=== PATIENT | female | born 1985 | race Caucasian/White ===

== ENCOUNTER 2017-12-06 12:15 | Inpatient (IN) | payer BC ==
[2017-12-06 13:27] LABS: ABS Basophils 0.1 10^3/ul (0-0.2); ABS Eosinophils 0.2 10^3/ul (0-0.6); ABS Lymphocytes 2.3 10^3/ul (1.0-4.8); ABS Monocytes 0.9 10^3/ul (0-0.8); ABS Neutrophils 7.6 10^3/ul (1.5-7.7); ABS Nucleated RBC 0 10^3/ul; Eosinophil % 1.4 % (0-6); Hematocrit 40 % (35-47); Hemoglobin 13.8 g/dl (12.0-16.0); Lymphocyte % 20.9 % (25-47); Mean Corpuscular HGB Conc 35 g/dl (31-36); Mean Corpuscular Hemoglobin 30 pg (27-31); Mean Corpuscular Volume 88 fL (80-97); Mean Platelet Volume 8 um3 (7.4-10.4); Nucleated Red Blood Cells % 0; Platelet Count 224 10^3/ul (150-450); Red Blood Count 4.54 10^6/ul (4.0-5.4); Red Cell Distribution Width 13 % (10.5-15); White Blood Count 11.1 10^3/ul (3.5-10.8)
[2017-12-06] MEDS ORDERED: Atropine 1MG/ML INJ* 1 ML VIAL ONE (20:22)
[2017-12-06] MEDS ORDERED: Morphine PF AMP (0.5MG/ML)* 5 MG/10 ML AMP ONE (20:23)
[2017-12-06] MEDS ORDERED: ceFOXitin 2 GM IVPREMIX* 2 GM/50 ML BAG ONE (20:38)
[2017-12-06] MEDS ORDERED: Naloxone* 0.4 MG/ML 1 ML VIAL IV PRN (21:13)
[2017-12-06] MEDS ORDERED: Nalbuphine* 20 MG/ML 1 ML VIAL IV PRN ×2 (21:13)
[2017-12-06] MEDS ORDERED: oxyCODONE/Acetamin 5/325 MG* TAB PO PRN (21:13)
[2017-12-06] MEDS ORDERED: Ondansetron INJ* 2 MG/ML VIAL IV PRN (21:13)
[2017-12-06] MEDS ORDERED: DiMENhydriNATE IV* 50 MG/ML VIAL IV PUSH PRN (21:13)
[2017-12-06] MEDS ORDERED: OXYTOCIN* 10 UNITS/ML 1 ML VIAL ONE (21:33)
[2017-12-06] MEDS ORDERED: EPHEDrine (Pressors)* 50 MG/ML VIAL ONE (21:33)
[2017-12-06] MEDS ORDERED: Witch Hazel PAD* JAR TOPICAL PRN (21:45)
[2017-12-06] MEDS ORDERED: RHO D Immune Globulin (HUMAN)* 300 MCG = 1,500 I.U. INJ IM ONE (21:45)
[2017-12-06] MEDS ORDERED: Dibucaine 1% 28.35 GM TUBE PR PRN (21:45)
[2017-12-06] MEDS ORDERED: Glycerin ADULT SUPP PR PRN (21:45)
[2017-12-06] MEDS ORDERED: Oxytocin in LR* 20 UNITS/1,000 ML BAG IVPB SCH (22:00)
[2017-12-06] MEDS ORDERED: Ondansetron INJ* 2 MG/ML VIAL ONE (22:08)
[2017-12-07] MEDS ORDERED: Ibuprofen TAB* 600 MG ONE (00:16)
[2017-12-07] MEDS: Ibuprofen TAB* 600 MG PO SCH ×2 (00:26→08:16)
[2017-12-07] MEDS ORDERED: Acetaminophen TAB* 325 MG ONE ×2 (01:55→09:26)
[2017-12-07] MEDS ORDERED: DiMENhydriNATE IV* 50 MG/ML VIAL ONE (01:57)
[2017-12-07] MEDS ORDERED: Ketorolac INJ* 30 MG/ML 1 ML VIAL IV ONE (02:00)
[2017-12-07] MEDS: Ketorolac INJ* 30 MG/ML 1 ML VIAL ONE ×2 (02:27→12:58)
[2017-12-07 06:10] LABS: ABS Basophils 0.1 10^3/ul (0-0.2); ABS Eosinophils 0 10^3/ul (0-0.6); ABS Lymphocytes 2.1 10^3/ul (1.0-4.8); ABS Monocytes 1.3 10^3/ul (0-0.8); ABS Neutrophils 13.4 10^3/ul (1.5-7.7); ABS Nucleated RBC 0 10^3/ul; Eosinophil % 0.2 % (0-6); Hematocrit 37 % (35-47); Hemoglobin 12.6 g/dl (12.0-16.0); Lymphocyte % 12.4 % (25-47); Mean Corpuscular HGB Conc 34 g/dl (31-36); Mean Corpuscular Hemoglobin 30 pg (27-31); Mean Corpuscular Volume 89 fL (80-97); Mean Platelet Volume 8 um3 (7.4-10.4); Nucleated Red Blood Cells % 0.1; Platelet Count 207 10^3/ul (150-450); Red Blood Count 4.15 10^6/ul (4.0-5.4); Red Cell Distribution Width 13 % (10.5-15); White Blood Count 16.9 10^3/ul (3.5-10.8)
[2017-12-07] MEDS: Acetaminophen TAB* 325 MG PO PRN ×3 (09:27→22:15)
[2017-12-07] MEDS: Docusate CAP* 100 MG PO SCH ×3 (09:27→19:51)
[2017-12-07] MEDS: Simethicone TAB* 80 MG TAB.CHEW PO SCH ×3 (09:27→19:51)
[2017-12-07] MEDS ORDERED: Ketorolac INJ* 30 MG/ML 1 ML VIAL IV PRN (09:33)
[2017-12-07] MEDS ORDERED: Acetaminophen TAB* 325 MG PO PRN (09:33)
[2017-12-07] MEDS: Ferrous Gluconate TAB* 324 MG TAB PO SCH (15:05)
--- NOTE | 2017-12-07 17:05 | OP ---
DATE OF OPERATION: 12/06/17 - ROOM #102 DATE OF : 85 SURGEON: Mai Herbert MD SOFTWARE CONSULTANT: Dr. Emiliano Goodwin. PRE-OP DIAGNOSES: Intrauterine at 39 and 4/7th weeks, desires repeat section, spontaneous rupture of membranes. POST-OP DIAGNOSES: Intrauterine at 39 and 4/7th weeks, desires repeat section, spontaneous rupture of membranes, delivered. OPERATIVE PROCEDURE: Repeat low transverse section. ESTIMATED BLOOD LOSS: 500 cc. URINE OUTPUT: 200 cc of clear yellow urine. FLUIDS: 1800 cc of crystalloid. FINDINGS: Revealed a vertex male infant, Apgars 9 at 1 minute and 9 at 5 minutes, weight was 7 pounds 5 ounces. Nuchal cord x1, 3-vessel cord. Placenta manually extracted and intact. Normal-appearing tubes and ovaries bilaterally. Normal uterine cavity without retained membranes or placental tissue. No evidence of adhesions. COMPLICATIONS: None apparent. DISPOSITION: Stable to recovery room. DESCRIPTION OF PROCEDURE: The patient after undergoing spinal anesthesia had a prep and drape of her abdomen. [place] protocol was used to identify the correct patient, procedure and position. After testing anesthesia to appropriate level with Allis, an incision was made through prior incision with scalpel. This was carried down to the fascia. The fascia was scored in the midline with scalpel and then extended laterally and superiorly using Cash scissors. The fascia was superiorly and inferiorly with blunt and sharp dissection. The peritoneum was then entered bluntly. The peritoneal incision was extended bluntly. Bladder blade was inserted. Lower uterine segment was identified and Allis was used to tent up on the lower uterine segment. An incision was made with the scalpel and this was carried down through to the membranes. Light meconium was noted. The incision was extended bluntly. The head was delivered direct OA. Anterior and posterior shoulder delivered after nuchal cord was reduced. Cord clamp was done after 60 seconds of cord pulse. The baby was vigorous and crying. Cord was then clamped and cut and the infant was handed off to waiting educational psychology professor. Appropriate cord blood was obtained. Placenta was then manually extracted, noted to be intact and had three-vessel cord. The uterus was exteriorized, wrapped in warm moist laparotomy sponge. The uterine cavity was explored and noted to be free of any membranes or placental tissue. The uterine incision was reapproximated using 0 Vicryl x1 in a running locked suture and then running imbricated for complete hemostasis of hysterotomy site. Tubes and ovaries were noted to have a normal appearance. The uterus was returned intra-abdominally. Colic gutters were lavaged. Hemostasis was assured at the hysterotomy site. The peritoneum was then grasped with Dinora and the peritoneum was then reapproximated using 2-0 Vicryl in a running fashion. Subfascial area was lavaged. Hemostasis assured and the fascia itself was reapproximated using 0 Vicryl x2 in a running fashion. Subcu was lavaged. Hemostasis assured with Bovie coagulation. A subcuticular fat stitch was placed for reapproximation of Camper's fascia using interrupted 3-0 Vicryl. The skin was then reapproximated using 4-0 Monocryl in a subcuticular fashion. Mastisol and Steri-Strips were applied. All sponge, needle, instrument, and blade counts were correct throughout the case. The patient went to recovery room in stable condition. [id number]/[facility] #: [id number] CHRISS
[2017-12-07] MEDS: Ibuprofen TAB* 600 MG PO PRN (19:51)
[2017-12-08] MEDS: Ibuprofen TAB* 600 MG PO PRN ×4 (02:20→22:31)
[2017-12-08] MEDS: Acetaminophen TAB* 325 MG PO PRN ×5 (06:37→21:11)
[2017-12-08] MEDS: Docusate CAP* 100 MG PO SCH ×3 (09:11→21:11)
[2017-12-08] MEDS: Simethicone TAB* 80 MG TAB.CHEW PO SCH ×3 (12:17→21:11)
[2017-12-08] MEDS: Ferrous Gluconate TAB* 324 MG TAB PO SCH (19:16)
[2017-12-09] MEDS ORDERED: Ondansetron TAB* 4 MG PO PRN (00:10)
[2017-12-09] MEDS ORDERED: MEPERIDINE 50 MG PO PRN (00:10)
[2017-12-09] MEDS: Acetaminophen TAB* 325 MG PO PRN ×2 (00:47→06:32)
[2017-12-09] MEDS ORDERED: MEPERIDINE 50 MG PO ONE (01:00)
[2017-12-09] MEDS: Ibuprofen TAB* 600 MG PO PRN ×2 (04:22→10:53)
[2017-12-09 07:35] VITALS: BP 129/87
[2017-12-09] MEDS: Docusate CAP* 100 MG PO SCH (08:27)
[2017-12-09] MEDS: Simethicone TAB* 80 MG TAB.CHEW PO SCH (08:27)
== END 2017-12-09 11:53 | disposition home or self-care (01) | DRG 540 ==
LOC: MCHOBOUT 12:15 → MCHOB 12:50
PROVIDERS: ADMIT Obstetrics & Gynecology; ATTEND Obstetrics & Gynecology
PROC: 4A1HXCZ Monitoring of Products of Conception, Cardiac Rate, External Approach (ICD-10-PCS; 2017-12-06)
PROC: 10D00Z1 Extraction of Products of Conception, Low, Open Approach (ICD-10-PCS; principal; 2017-12-06 20:35)
DX: O69.1XX0 Labor and delivery complicated by cord around neck, with compression, not applicable or unspecified (principal); E66.9 Obesity, unspecified; O99.214 Obesity complicating childbirth; O34.211 Maternal care for low transverse scar from previous cesarean delivery; O99.52 Diseases of the respiratory system complicating childbirth; J45.909 Unspecified asthma, uncomplicated; O26.893 Other specified pregnancy related conditions, third trimester; O77.0 Labor and delivery complicated by meconium in amniotic fluid; Z3A.39 39 weeks gestation of pregnancy; Z37.0 Single live birth; Z67.41 Type O blood, Rh negative; Z68.36 Body mass index [BMI] 36.0-36.9, adult; Z88.5 Allergy status to narcotic agent
CPT/HCPCS: 36415; 84550; 85025; 85461; 86850; 86900; 86901; A9270-GY; J0461; J0694; J1240; J1885; J2405; J2590; J2790

== ENCOUNTER 2019-12-15 18:59 | Emergency (ER) | payer BC ==
[2019-12-15 20:36] LABS: ABS Lymphocytes 0.5 10^3/ul (1.0-4.8); ABS Monocytes 0.4 10^3/ul (0-0.8); ABS Neutrophils 7.2 10^3/ul (1.5-7.7); Hematocrit 41 % (35-47); Hemoglobin 13.7 g/dL (12.0-16.0); Lymphocyte % 6.5 %; Mean Corpuscular HGB Conc 34 g/dL (31-36); Mean Corpuscular Hemoglobin 29 pg (27-31); Mean Corpuscular Volume 86 fL (80-97); Mean Platelet Volume 7.5 fL (7.4-10.4); Platelet Count 299 10^3/uL (150-450); Red Blood Count 4.72 10^6 /uL (3.70-4.87); Red Cell Distribution Width 12 % (10-15); White Blood Count 8.1 10^3/uL (3.5-10.8)
[2019-12-15 20:51] LABS: Albumin 3.9 g/dL (3.2-5.2); Albumin/Globulin Ratio 1.3 (1-3); BUN/Creatinine Ratio 16.4 (8-20); C Reactive Protein 1.76 mg/L (<8.01); Calcium 8.7 mg/dL (8.6-10.3); EGFR African American 135.9 (>60); EGFR Non-African American 112.3 (>60); Potassium 3.6 mmol/L (3.5-5.0); Total Bilirubin 0.2 mg/dL (0.2-1.0); Total Protein 6.9 g/dL (6.4-8.9)
[2019-12-15 20:53] LABS: Troponin I 0.01 ng/mL (<0.03)
--- NOTE | 2019-12-15 21:29 | ED ---
Respiratory - HPI Summary HPI Summary: 34-year-old female presents with shortness of breath today. States a month ago had an upper respiratory infection that seemed to get better and then had a GI bug that turned into a sinus infection and then became an upper respiratory infection. She has been following up with her patient care specialist. Product Development Worker currently placed her on a steroid and just started on moxifloxacin today. She was on course of clarithromycin. She states her cough was productive and now is dry. She admits to occasional shortness of breath. States that SOB has resolved. She was also anxious at the time. She had some chest pain at that time as well but none currently. symptoms did not change with positional changes. She denies any family history of blood clots. No recent travel. Nonsmoker. No history of high blood pressure ordiabetes. - History of Current Complaint Chief Complaint: EDUpperRespComplaint Stated Complaint: COUGH,SOB Time Seen by Provider: 12/15/19 19:43 Pain Intensity: 4 - Allergy/Home Medications Allergies/Adverse Reactions: Allergies Allergy/AdvReac Type Severity Reaction Status Date / Time oxycodone Allergy Severe Hives Verified 12/15/19 21:29 Home Medications: Home Medications Albuterol HFA INHALER* [Ventolin HFA Inhaler*] 1 puff IH Q4HR PRN 11/23/15 [ History Confirmed 12/15/19] Budesonide NASAL (NF) 1 puff NASAL DAILY 12/06/17 [History Confirmed 12/15/19] Hydrocodone/Acetaminophen [Hydrocodone-Acetamin 5-325 mg] 1 - 2 tab PO Q6H PRN # 20 tablet MDD 6 12/09/17 [Rx Confirmed 12/15/19] Budesonide/Formoterol Fumarate [Budesonide-Formoterol 160-4.5] 1 spray ALT NARE BID 12/15/19 [History Confirmed 12/15/19] Moxifloxacin HCl 400 mg PO DAILY 12/15/19 [History Confirmed 12/15/19] Sodium Chloride [Saline Nasal Mist] 126 ml NS Q6HR PRN 12/15/19 [History Confirmed 12/15/19] predniSONE 10 mg TAB [Deltasone 10 MG TAB*] 30 mg PO BID 12/15/19 [History Confirmed 12/15/19] PMH/Surg Hx/FS Hx/Imm Hx Endocrine/Hematology History: Denies: Hx Anticoagulant Therapy Respiratory History: Reports: Hx Asthma - Surgical History Surgery Procedure, Year, and Place: EYE SURGERY, Infectious Disease History: No Infectious Disease History: Denies: Traveled Outside the [place] in Last 30 Days - Family History Known Family History: Positive: None Negative: Blood Disorder - Social History Alcohol Use: Occasionally Substance Use Type: Reports: None Smoking Status (MU): Never Smoked Tobacco Review of Systems Negative: Fever Negative: Chest Pain Positive: Shortness Of Breath, Cough All Other Systems Reviewed And Are Negative: Yes Physical Exam Triage Information Reviewed: Yes Vital Signs On Initial Exam: Initial Vitals Temp Pulse Resp BP Pulse Ox 98.2 F 112 18 162/112 97 12/15/19 19:00 12/15/19 19:00 12/15/19 19:00 12/15/19 19:00 12/15/19 19:00 Vital Signs Reviewed: Yes Appearance: Positive: Well-Appearing Skin: Positive: Warm, Dry Head/Face: Positive: Normal Head/Face Inspection Eyes: Positive: Normal, EOMI, NICOLA, Conjunctiva Clear ENT: Positive: Normal ENT inspection, Pharynx normal, TMs normal Respiratory/Lung Sounds: Positive: Clear to Auscultation, Breath Sounds Present Cardiovascular: Positive: Normal, RRR Abdomen Description: Positive: Nontender, Soft Bowel Sounds: Positive: Present Musculoskeletal: Positive: Normal Neurological: Positive: Normal Psychiatric: Positive: Normal Procedures - Sedation Patient Received Moderate/Deep Sedation with Procedure: No Diagnostics - Vital Signs Vital Signs Temp Pulse Resp BP Pulse Ox 12/15/19 19:00 98.2 F 112 18 162/112 97 - Laboratory Lab Results: Lab Results 12/15/19 12/15/19 12/15/19 Range/Units 20:21 20:21 20:21 WBC 8.1 (3.5-10.8) 10^3/uL RBC 4.72 (3.70-4.87) 10^6 /uL Hgb 13.7 (12.0-16.0) g/dL Hct 41 (35-47) % MCV 86 (80-97) fL MCH 29 (27-31) pg MCHC 34 (31-36) g/dL RDW 12 (10-15) % Plt Count 299 (150-450) 10^3/uL MPV 7.5 (7.4-10.4) fL Neut % (Auto) 88.3 % Lymph % (Auto) 6.5 % Ray % (Auto) 5.1 % Eos % (Auto) 0.0 % Baso % (Auto) 0.1 % Absolute Neuts (auto) 7.2 (1.5-7.7) 10^3/ul Absolute Lymphs (auto) 0.5 L (1.0-4.8) 10^3/ul Absolute Monos (auto) 0.4 (0-0.8) 10^3/ul Absolute Eos (auto) 0.0 (0-0.6) 10^3/ul Absolute Basos (auto) 0.0 (0-0.2) 10^3/ul Absolute Nucleated RBC 0.0 10^3/ul Nucleated RBC % 0.0 D-Dimer, Quantitative < 200 (Less Than 230) ng/mL Sodium 139 (135-145) mmol/L Potassium 3.6 (3.5-5.0) mmol/L Chloride 104 (101-111) mmol/L Carbon Dioxide 26 (22-32) mmol/L Anion Gap 9 (2-11) mmol/L BUN 10 (6-24) mg/dL Creatinine 0.61 (0.51-0.95) mg/dL Est GFR ( Amer) 135.9 (>60) Est GFR (Non-Af Amer) 112.3 (>60) BUN/Creatinine Ratio 16.4 (8-20) Glucose 118 H (70-100) mg/dL Lactic Acid (0.5-2.0) mmol/L Calcium 8.7 (8.6-10.3) mg/dL Total Bilirubin 0.20 (0.2-1.0) mg/dL AST 19 (13-39) U/L ALT 31 (7-52) U/L Alkaline Phosphatase 88 (34-104) U/L Troponin I 0.01 (<0.03) ng/mL C-Reactive Protein 1.76 (<8.01) mg/L Total Protein 6.9 (6.4-8.9) g/dL Albumin 3.9 (3.2-5.2) g/dL Globulin 3.0 (2-4) g/dL Albumin/Globulin Ratio 1.3 (1-3) 12/15/19 Range/Units 20:21 WBC (3.5-10.8) 10^3/uL RBC (3.70-4.87) 10^6 /uL Hgb (12.0-16.0) g/dL Hct (35-47) % MCV (80-97) fL MCH (27-31) pg MCHC (31-36) g/dL RDW (10-15) % Plt Count (150-450) 10^3/uL MPV (7.4-10.4) fL Neut % (Auto) % Lymph % (Auto) % Ray % (Auto) % Eos % (Auto) % Baso % (Auto) % Absolute Neuts (auto) (1.5-7.7) 10^3/ul Absolute Lymphs (auto) (1.0-4.8) 10^3/ul Absolute Monos (auto) (0-0.8) 10^3/ul Absolute Eos (auto) (0-0.6) 10^3/ul Absolute Basos (auto) (0-0.2) 10^3/ul Absolute Nucleated RBC 10^3/ul Nucleated RBC % D-Dimer, Quantitative (Less Than 230) ng/mL Sodium (135-145) mmol/L Potassium (3.5-5.0) mmol/L Chloride (101-111) mmol/L Carbon Dioxide (22-32) mmol/L Anion Gap (2-11) mmol/L BUN (6-24) mg/dL Creatinine (0.51-0.95) mg/dL Est GFR ( Amer) (>60) Est GFR (Non-Af Amer) (>60) BUN/Creatinine Ratio (8-20) Glucose (70-100) mg/dL Lactic Acid 2.0 (0.5-2.0) mmol/L Calcium (8.6-10.3) mg/dL Total Bilirubin (0.2-1.0) mg/dL AST (13-39) U/L ALT (7-52) U/L Alkaline Phosphatase (34-104) U/L Troponin I (<0.03) ng/mL C-Reactive Protein (<8.01) mg/L Total Protein (6.4-8.9) g/dL Albumin (3.2-5.2) g/dL Globulin (2-4) g/dL Albumin/Globulin Ratio (1-3) Result Diagrams: 12/15/19 20:21 12/15/19 20:21 Lab Statement: Any lab studies that have been ordered have been reviewed, and results considered in the medical decision making process. - Radiology chest Radiology Interpretation Completed By: ED Physician Summary of Radiographic Findings: no active disease - EKG No standard instances Cardiac Rate: NL EKG Rhythm: Sinus Rhythm Summary of EKG Findings: sinus rhythm Disposition - Course Course Of Treatment: 34-year-old female presents with shortness of breath today. States a month ago had an upper respiratory infection that seemed to get better and then had a GI bug that turned into a sinus infection and then became an upper respiratory infection. She has been following up with her patient care specialist. Product Development Worker currently placed her on a steroid and just started on moxifloxacin today. She was on course of clarithromycin. She states her cough was productive and now is dry. She admits to occasional shortness of breath. States that SOB has resolved. She was also anxious at the time. She had some chest pain at that time as well but none currently. symptoms did not change with positional changes. She denies any family history of blood clots. No recent travel. Nonsmoker. No history of high blood pressure ordiabetes. On exam some rhonchi noted but no wheezes. Chest x-ray normal. wbc normal. D- dimer negative. Troponin 0.01. EKG shows sinus rhythm discussed likely bronchitis. Told to continue steroid moxifloxacin. Told to follow up with primary. Patient understands and agrees plan. - Differential Dx - Cardiopulmonary Differential Diagnoses - Cardiopulmonary: Asthma, Bronchitis, Lower Resp Infection - Diagnoses Provider Diagnoses: Bronchitis Discharge ED - Sign-Out/Discharge Documenting (check all that apply): Patient Departure - Discharge Plan Condition: Good Disposition: HOME Patient Education Materials: Acute Bronchitis (ED) Referrals: Isra Mcrae COLLATERAL ANALYST [Primary Care Provider] - Additional Instructions: continue antibiotic and steroid as prescribed follow up with primary within 5 days Return to ED if develop any new or worsening symptoms - Billing Disposition and Condition Condition: GOOD Disposition: Home
[2019-12-15 21:52] VITALS: BP 138/98
== END 2019-12-15 21:51 | disposition home or self-care (01) ==
LOC: ED 18:59
DX: J40 Bronchitis, not specified as acute or chronic (principal); R06.02 Shortness of breath; R05 Cough; R94.31 Abnormal electrocardiogram [ECG] [EKG]
CPT/HCPCS: 36415; 71046; 80053; 83605; 84484; 85025; 85379; 86140; 87040; 93005; 99282